=== PATIENT | male | born 1975 | race Caucasian/White ===

== ENCOUNTER → 2020-09-12 | Outpatient (CLI) | payer BC, OTHER ==
[~2020-09-12] MED LIST: FLOMAX 0.4 MG0.4 MG PO; NORCO 7.5-3251 EACH PO; ZOFRAN 4 MG TAB4 MG PO
== END ==
LOC: KOH-I 15:41
DX: M25.561 Pain in right knee (principal); M17.11 Unilateral primary osteoarthritis, right knee; M25.461 Effusion, right knee
CPT/HCPCS: 73562